=== PATIENT | male | born 1940 | race Caucasian/White ===

== ENCOUNTER → 2017-04-10 | Outpatient (CLI) | payer BC ==
[~2017-04-10] MED LIST: ASCO100061 PO; ASPEC325 PO; CART1SOL OPB; MULT-506 PO; NIAC500T8 PO; OMEG10007 PO; folic acid PO
[2017-04-10 09:38] LABS: BASO % 0.9 %; BASO ABS # 0.04 K/uL (0-0.2); COMPLETE YES; EOS % 5.1 %; HEMATOCRIT 41.9 % (42-52); LYMPH ABS # 1.49 K/uL (1.2-3.4); MEAN CELL VOLUME 88.6 fL (80-100); MEAN CORPUSCULAR HEMOGLOBIN 29.8 pg (25-34); MEAN CORPUSCULAR HGB CONC 33.7 g/dl (32-36); MONO % 10.2 %; NEUT % 50.8 %; PLATELET COUNT 224 K/uL (130-400); RED BLOOD COUNT 4.73 M/uL (4.7-6.1); WHITE BLOOD COUNT 4.52 K/uL (4.8-10.8)
[2017-04-10 10:07] LABS: BLOOD UREA NITROGEN 12 mg/dl (7-18); CALCIUM 8.9 mg/dl (8.5-10.1); CARBON DIOXIDE 28 mmol/L (21-32); CHLORIDE 108 mmol/L (98-107); CREATININE 0.81 mg/dl (0.60-1.40); GLUCOSE 96 mg/dl (70-99); HDL CHOLESTEROL 53 mg/dl; POTASSIUM 3.9 mmol/L (3.5-5.1); SODIUM 143 mmol/L (136-145)
[2017-04-10 10:08] LABS: ESTIMATED AVERAGE GLUCOSE 108 mg/dl; HA1C FLAG Normal (Normal)
[2017-04-10 10:13] LABS: ALB/GLOB RATIO 1.1 (0.9-2); ALKALINE PHOSPHATASE 52 U/L (45-117); ALT/SGPT 31 U/L (12-78); AST/SGOT 15 U/L (15-37); CHOLESTEROL 193 mg/dl (0-200); CHOLESTEROL/HDL RATIO 3.6; LDL CHOLESTEROL CALCULATED 115 mg/dl; PROSTATE SPECIFIC ANTIGEN 0.022 ng/ml (0.000-4.000); TRIGLYCERIDES 127 mg/dl (0-150); VERY LOW DENSITY LIPOPROT CALC 25 mg/dl
[2017-04-11 09:48] LABS: C-REACTIVE PROT HIGHSEN 0.6 MG/L
--- NOTE | 2017-04-16 09:35 | CODING QUERY MEDICAL NECESSITY ---
SUPPORTING DIAGNOSIS NEEDED A supporting diagnosis is required for the test/procedure performed on this patient in order for us to be reimbursed by the patient's insurance. Please provide a supporting diagnosis for the following test/procedure listed below next to the test name along with your signature. *If there is no additional diagnosis for this patient that would support the following test/procedure please document that below next to the test/procedure. Test(s)/Procedure(s) that require a supporting diagnosis: * HEMOGLOBIN A1C DIAGNOSIS: * PSA DIAGNOSIS: Provider Signature: Date: Thank you Nena Henao [employer] Once completed, please kindly fax back to [phone] For questions please call [phone]
== END | disposition home or self-care (01) ==
LOC: C.LAB 08:31
PROVIDERS: ATTEND Internal Medicine
DX: K57.30 Diverticulosis of large intestine without perforation or abscess without bleeding (principal); E78.5 Hyperlipidemia, unspecified; R73.01 Impaired fasting glucose; C61 Malignant neoplasm of prostate

== ENCOUNTER → 2017-04-18 | Outpatient (CLI) | payer BC ==
[~2017-04-18] MED LIST changes: +GADAVIST IV PRN
--- NOTE | 2017-04-18 15:01 | DIAGNOSTIC IMAGING REPORT ---
PELVIC COMBO CLINICAL HISTORY: 77 years-old Male presenting with MALIGNANT NEOPLASM OF PROSTATE, PSA rising from 0.01 ng/mL to 0.22 ng/mL. TECHNIQUE: Multisequence, multiplanar MR imaging of the pelvis was performed before and after the administration of intravenous contrast. IV contrast: 8 mL of Gadavist. COMPARISON: 04/20/2016. FINDINGS: Localizer images: Left hydrocele. Bowel: Multifocal T2 hyperintensity of the rectal wall most prominently at the anorectal junction, likely represents hemorrhoids. Bladder: Incompletely distended but diffusely thick-walled, likely postradiation change. No focal masslike thickening. Pelvic organs: Postsurgical changes of prostatectomy. Associated susceptibility artifact from surgical clip. Adhesions in the prostatectomy bed. Residual vas deferentia unremarkable. No abnormal soft tissue at the ureteral anastomosis to suggest recurrent disease. Vasculature: Iliac vessels patent. Lymph nodes: No lymphadenopathy in the pelvis. Other: Right lower pole renal cyst noted. Abdominal wall: Postsurgical change. Musculoskeletal: Normal bone marrow signal intensity. Degenerative changes of the sacroiliac joints. Multilevel degenerative changes of the lumbar spine. IMPRESSION: 1. Postsurgical changes of prostatectomy. No evidence of residual or recurrent disease. No lymphadenopathy. 2. Circumferential bladder wall thickening possibly postradiation change versus prior chronic outlet obstruction. Electronically signed by: Marcio Syed M.D. 04/18/2017 3:00 PM Dictated Date/Time: 04/18/2017 2:49 PM
== END | disposition home or self-care (01) ==
LOC: C.MRIBC 13:44
PROVIDERS: ATTEND Internal Medicine Hematology & Oncology
DX: C61 Malignant neoplasm of prostate (principal)